=== PATIENT | male | born 1975 | race Caucasian/White ===

== ENCOUNTER → 2018-02-16 | Outpatient (CLI) | payer OTHER ==
--- NOTE | 2018-02-16 09:28 | Diagnostic Imaging Report ---
MRI of the right tibia/fibula without contrast. History: Muscle spasm. Trauma. Decreased range of motion. Calf pain and swelling. Bruising. Pain worse with walking. Technique: Multiplanar multisequence MRI of the right tibia/fibula without contrast. Comparison: None Findings: There is a partial tear predominantly involving the fascia between the medial gastrocnemius and soleus muscles at the proximal/mid aspect of the calf. There is a mild amount of edema in the adjacent medial gastrocnemius and soleus musculature. There is adjacent soft tissue edema. Additionally, there is a 15.0 x 4.0 x 1.0 cm fluid collection along the fascial plane between the medial gastrocnemius and soleus muscles best seen on series 3 image 30 and series 5 image 16. This is consistent with a resolving hematoma/seroma. There is no acute fracture, subluxation or avascular necrosis. The visualized neurovascular bundles are intact. The remainder the visualized muscles are normal in size, signal intensity and morphology. There is a small Pearce's cyst. Impression: Partial tear predominantly involving the fascia between the medial gastrocnemius and soleus muscles at the proximal/mid aspect of the calf. There is a mild amount of edema in the adjacent medial gastrocnemius and soleus musculature. There is adjacent soft tissue edema. Additionally, there is a 15.0 x 4.0 x 1.0 cm fluid collection along the fascial plane between the medial gastrocnemius and soleus muscles consistent with a resolving hematoma/seroma. Signed by: Dr. Anatoliy Monte M.D. on 02/16/2018 9:24 AM
== END ==
LOC: MRI 07:31
PROVIDERS: ATTEND Family Medicine
DX: M62.831 Muscle spasm of calf (principal)